=== PATIENT | male | born 1975 | race Caucasian/White ===

== ENCOUNTER 2016-12-04 14:54 | Emergency (ER) | payer OTHER ==
[2016-12-04 15:56] LABS: BASO % 0.5 % (0.2-1.2); EOS # 0.1 10_X3_uL (0.0-0.5); EOS % 3.2 % (0.8-7.0); GRAN # 1.6 10_X3_uL (1.8-5.4); GRAN % 39.7 % (34.0-67.9); HEMATOCRIT 41.6 % (40-51); HEMOGLOBIN 14.8 g/dL (13.7-17.5); LYMPH # 1.9 10_X3_uL (1.3-3.6); LYMPH % 47.5 % (21.8-53.1); MEAN CORPUSCULAR HGB CONC 35.6 g/dL (32.0-36.0); MEAN CORPUSCULAR VOLUME 92.9 fL (79-92); MEAN PLATELET VOLUME 9.2 fl (7.5-11.5); MONO # 0.4 10_X3_uL (0.3-0.8); MONO % 9.1 % (5.3-12.2); PLATELET COUNT 243 x10_3/uL (163-337); RED BLOOD COUNT 4.48 x10_6/uL (4.6-6.1); RED CELL DISTRIBUTION WIDTH 13.7 % (11.6-14.4); WHITE BLOOD COUNT 4.1 x10_3/uL (4.2-9.1)
[2016-12-04 16:19] LABS: CREATININE 0.9 mg/dL (0.6-1.3); POTASSIUM 3.1 mmol/L (3.4-5.0)
== END 2016-12-04 19:24 | disposition home or self-care (01) ==
LOC: ER 14:54
PROVIDERS: General Practice
DX: R07.89 Other chest pain (principal); I10 Essential (primary) hypertension; E87.6 Hypokalemia; R21 Rash and other nonspecific skin eruption; F11.20 Opioid dependence, uncomplicated; K21.9 Gastro-esophageal reflux disease without esophagitis; F17.210 Nicotine dependence, cigarettes, uncomplicated; Z79.899 Other long term (current) drug therapy; Z88.8 Allergy status to other drugs, medicaments and biological substances; Z88.1 Allergy status to other antibiotic agents
CPT/HCPCS: 36415; 71010; 71250; 80048; 85025; 93005; 99285-25; J7040; Q9967